=== PATIENT | male | born 1940 | race Caucasian/White ===

== ENCOUNTER 2017-07-02 06:29 | Inpatient (IN) | payer MEDICAID ==
[2017-07-02] MEDS: SODIUM CHLORIDE 0.9% 1L BAG IV* (07:08)
[2017-07-02] MEDS: ACETAMINOPHEN 325 MG TAB PO (07:08)
[2017-07-02] MEDS: IPRATROPIUM (NEB) 0.5 MG/2.5 ML AMP INH (07:12)
[2017-07-02] MEDS: ALBUTEROL 0.5% (NEB) 2.5 MG/0.5 ML AMP INH (07:12)
[2017-07-02 07:27] LABS: ADD MAN DIFF? NO
[2017-07-02 07:30] LABS: BASOPHIL # 0.1 10^3/ul (0.0-0.1); BASOPHILS % 0.5 % (0.0-2.0); EOSINOPHILS # 0.1 10^3/ul (0.0-0.5); EOSINOPHILS % 1.2 % (0.0-7.0); HEMATOCRIT 42.3 % (42.0-52.0); HEMOGLOBIN 13.7 g/dl (14.0-18.0); LYMPHOCYTES % 8.8 % (15.0-51.0); MEAN CORPUSCULAR HGB CONC 32.4 g/dl (32.0-37.0); MEAN CORPUSCULAR VOLUME 89.6 fl (82.0-101.0); MEAN PLATELET VOLUME 12.3 fl (7.4-10.4); MONOCYTE # 0.6 10^3/ul (0.3-0.9); MONOCYTES % 5.7 % (0.0-11.0); NEUTROPHIL # 9.2 10^3/ul (1.6-7.5); NEUTROPHILS % 83.2 % (39.0-77.0); PLATELET COUNT 174 10^3/UL (140-415); RED BLOOD COUNT 4.72 10^6/ul (4.70-6.10); RED CELL DISTRIBUTION WIDTH 14.5 % (11.5-14.5)
[2017-07-02 07:30] LABS: WHITE BLOOD COUNT 11.1 10^3/ul (4.8-10.8)
[2017-07-02 07:50] LABS: PROTIME 13.3 Sec (11.9-14.9)
[2017-07-02 07:51] LABS: ALANINE AMINOTRANSFERASE 42 IU/L (13-69); ALBUMIN 4.1 g/dl (3.3-4.9); ALBUMIN/GLOBULIN RATIO 0.95; ALKALINE PHOSPHATASE 123 IU/L (42-121); ANION GAP 21 (8-16); ASPARTATE AMINO TRANSFERASE 34 IU/L (15-46); BILIRUBIN,INDIRECT 0.1 mg/dl (0-1.1); BILIRUBIN,TOTAL 0.1 mg/dl (0.2-1.3); BLOOD UREA NITROGEN 16 mg/dl (7-20); CARBON DIOXIDE 26 mmol/L (21-31); CHLORIDE 105 mmol/L (97-110); CREATININE 0.93 mg/dl (0.61-1.24); GLUCOSE 130 mg/dl (70-220); POTASSIUM 4.6 mmol/L (3.5-5.1); SODIUM 147 mmol/L (135-144); TOTAL PROTEIN 8.4 g/dl (6.1-8.1)
[2017-07-02 07:53] LABS: LACTIC ACID 3.1 mmol/L (0.5-2.0)
[2017-07-02 08:02] LABS: TROPONIN-I < 0.012 ng/ml (0.00-0.12)
[2017-07-02] MEDS: CEFTRIAXONE 1 GM/50 ML (PMX) 50 ML IVPB (08:05)
[2017-07-02] MEDS: AZITHROMYCIN 500MG/NS (PMX) 250 ML IV (08:06)
[2017-07-02] MEDS: SOD CHLORIDE 0.9% 1,000 ML IV (08:07)
[2017-07-02] MEDS ORDERED: ONDANSETRON 4 MG INJ IV (08:30)
[2017-07-02] MEDS ORDERED: ACETAMINOPHEN 325 MG TAB PO ×2 (08:30→09:00)
[2017-07-02] MEDS ORDERED: ONDANSETRON 4 MG TAB PO (09:00)
[2017-07-02] MEDS ORDERED: NACL 0.9% 3 ML SYG IV (09:00)
[2017-07-02] MEDS ORDERED: AZITHROMYCIN 500MG/NS (PMX) 250 ML IV (09:00)
[2017-07-02] MEDS ORDERED: GLUCOSE GEL 15 GRAM TUBE BUCCAL (09:00)
[2017-07-02] MEDS ORDERED: DEXTROSE 50% 50 ML SYRINGE IV ×2 (09:00)
[2017-07-02] MEDS ORDERED: DOCUSATE SODIUM 100 MG CAP PO (09:00)
[2017-07-02] MEDS ORDERED: GLUCOSE GEL 15 GRAM TUBE PO ×2 (09:00)
[2017-07-02] MEDS ORDERED: GLUCAGON 1 MG INJ IM (09:00)
[2017-07-02] MEDS ORDERED: CEFTRIAXONE 1 GM/50 ML (PMX) 50 ML IVPB (09:00)
[2017-07-02 09:59] LABS: HEMOGLOBIN A1C 5.9 % (0-5.9)
[2017-07-02 10:00] LABS: LACTIC ACID 1.3 mmol/L (0.5-2.0)
[2017-07-02] MEDS: ACCU-CHEK XX ×3 (10:00→19:33)
[2017-07-02] MEDS: FAMOTIDINE 20 MG TAB PO ×2 (10:10→20:17)
[2017-07-02] MEDS: SALMETEROL/FLUTICASONE 250/50 INHA INH ×2 (10:10→20:17)
[2017-07-02] MEDS: TAMSULOSIN (SR) 0.4 MG CAP PO ×2 (10:10→20:17)
[2017-07-02] MEDS: AMLODIPINE 5 MG TAB PO (10:12)
[2017-07-02] MEDS: TERBINAFINE 250 MG TAB PO ×2 (10:12→20:17)
[2017-07-02] MEDS: HEPARIN 5,000 UNIT/0.5 ML VIAL SC ×2 (10:13→20:21)
[2017-07-02] MEDS: ALBUTEROL 0.083% (NEB) 2.5 MG/3 ML AMP NEB ×4 (10:23→21:33)
[2017-07-02 10:41] LABS: HEPATITIS B SURFACE ANTIGEN NEGATIVE (NEGATIVE)
[2017-07-02 10:57] LABS: HEPATITIS C VIRAL ANTIBODY NEGATIVE (NEGATIVE)
[2017-07-02] MEDS: INSULIN ASPART [NOVOLOG] 3 ML PEN SC ×3 (12:00→20:38)
[2017-07-02] MEDS: HYDROCODONE/APAP (5/325) TAB PO (21:42)
[2017-07-02 21:55] LABS: LACTIC ACID 1.2 mmol/L (0.5-2.0)
[2017-07-02] MEDS: ATORVASTATIN 10 MG TAB PO (23:09)
[2017-07-03] MEDS: ALBUTEROL 0.083% (NEB) 2.5 MG/3 ML AMP NEB ×6 (00:08→20:20)
[2017-07-03 06:16] LABS: ADD MAN DIFF? NO
[2017-07-03 06:27] LABS: WHITE BLOOD COUNT 13.2 10^3/ul (4.8-10.8)
[2017-07-03 06:27] LABS: BASOPHILS % 0.3 % (0.0-2.0); EOSINOPHILS # 0.1 10^3/ul (0.0-0.5); EOSINOPHILS % 0.7 % (0.0-7.0); HEMATOCRIT 34.9 % (42.0-52.0); HEMOGLOBIN 11.2 g/dl (14.0-18.0); LYMPHOCYTES # 1.2 10^3/ul (0.8-2.9); LYMPHOCYTES % 9.2 % (15.0-51.0); MEAN CORPUSCULAR HEMOGLOBIN 28.9 pg (29.0-33.0); MEAN CORPUSCULAR HGB CONC 32.1 g/dl (32.0-37.0); MEAN CORPUSCULAR VOLUME 90.2 fl (82.0-101.0); MEAN PLATELET VOLUME 12.9 fl (7.4-10.4); MONOCYTE # 1.3 10^3/ul (0.3-0.9); NEUTROPHIL # 10.4 10^3/ul (1.6-7.5); NEUTROPHILS % 79.3 % (39.0-77.0); PLATELET COUNT 176 10^3/UL (140-415); RED BLOOD COUNT 3.87 10^6/ul (4.70-6.10)
[2017-07-03 06:47] LABS: ALANINE AMINOTRANSFERASE 34 IU/L (13-69); ALBUMIN 3.4 g/dl (3.3-4.9); ALBUMIN/GLOBULIN RATIO 0.89; ALKALINE PHOSPHATASE 100 IU/L (42-121); ANION GAP 12 (8-16); ASPARTATE AMINO TRANSFERASE 23 IU/L (15-46); BILIRUBIN,INDIRECT 0.1 mg/dl (0-1.1); BILIRUBIN,TOTAL 0.1 mg/dl (0.2-1.3); BLOOD UREA NITROGEN 14 mg/dl (7-20); CALCIUM 8.8 mg/dl (8.4-10.2); CARBON DIOXIDE 26 mmol/L (21-31); CHLORIDE 106 mmol/L (97-110); CREATININE 0.81 mg/dl (0.61-1.24); GLUCOSE 103 mg/dl (70-220); POTASSIUM 3.9 mmol/L (3.5-5.1); SODIUM 140 mmol/L (135-144); TOTAL PROTEIN 7.2 g/dl (6.1-8.1)
[2017-07-03 06:58] LABS: LACTIC ACID 1.2 mmol/L (0.5-2.0)
[2017-07-03 07:00] LABS: IRON < 10 ug/dl (35-150)
[2017-07-03 08:12] LABS: TOTAL IRON BINDING CAPACITY 194 ug/dl (241-421)
[2017-07-03] MEDS: INSULIN ASPART [NOVOLOG] 3 ML PEN SC ×4 (08:15→21:00)
[2017-07-03] MEDS: SALMETEROL/FLUTICASONE 250/50 INHA INH ×2 (08:17→21:04)
[2017-07-03] MEDS: CEFTRIAXONE 1 GM/50 ML (PMX) 50 ML IVPB (08:17)
[2017-07-03] MEDS: FAMOTIDINE 20 MG TAB PO ×2 (08:18→20:57)
[2017-07-03] MEDS: TAMSULOSIN (SR) 0.4 MG CAP PO ×2 (08:18→20:57)
[2017-07-03] MEDS: AMLODIPINE 5 MG TAB PO (08:18)
[2017-07-03] MEDS: TERBINAFINE 250 MG TAB PO ×2 (08:18→20:57)
[2017-07-03] MEDS: HEPARIN 5,000 UNIT/0.5 ML VIAL SC ×2 (08:31→20:58)
[2017-07-03] MEDS: ACCU-CHEK XX ×2 (09:55→14:05)
[2017-07-03] MEDS: AZITHROMYCIN 500MG/NS (PMX) 250 ML IV (10:41)
[2017-07-03] MEDS: SOD FERRIC GLUC COMPLX 125 MG in SOD CHLORIDE 0.9% 100 ML IVPB (16:38)
[2017-07-03] MEDS: ATORVASTATIN 10 MG TAB PO (20:57)
[2017-07-04] MEDS: ALBUTEROL 0.083% (NEB) 2.5 MG/3 ML AMP NEB ×3 (00:48→08:40)
[2017-07-04 07:44] LABS: ADD UMIC YES; UR ASCORBIC ACID NEGATIVE (NEGATIVE); UR BILIRUBIN (Dip) NEGATIVE (NEGATIVE); UR BLOOD (Dip) NEGATIVE (NEGATIVE); UR CLARITY CLEAR (CLEAR); UR COLOR YELLOW (YELLOW); UR GLUCOSE (Dip) NEGATIVE (NEGATIVE); UR KETONES (Dip) TRACE mg/dL (NEGATIVE); UR LEUKOCYTE ESTERASE (Dip) TRACE Leu/ul (NEGATIVE); UR NITRITE (Dip) NEGATIVE (NEGATIVE); UR RBC 0 /HPF (0-5); UR TOTAL PROTEIN (Dip) NEGATIVE (NEGATIVE); UR UROBILINOGEN (Dip) NEGATIVE (NEGATIVE); UR WBC 10 /HPF (0-5)
[2017-07-04] MEDS: INSULIN ASPART [NOVOLOG] 3 ML PEN SC ×4 (08:08→22:35)
[2017-07-04] MEDS: FAMOTIDINE 20 MG TAB PO ×2 (08:43→22:26)
[2017-07-04] MEDS: TAMSULOSIN (SR) 0.4 MG CAP PO ×2 (08:43→22:26)
[2017-07-04] MEDS: AMLODIPINE 5 MG TAB PO (08:43)
[2017-07-04] MEDS: TERBINAFINE 250 MG TAB PO ×2 (08:43→22:26)
[2017-07-04] MEDS: CEFTRIAXONE 1 GM/50 ML (PMX) 50 ML IVPB (08:44)
[2017-07-04] MEDS: HEPARIN 5,000 UNIT/0.5 ML VIAL SC ×2 (08:46→22:30)
[2017-07-04] MEDS: AZITHROMYCIN 500MG/NS (PMX) 250 ML IV (09:56)
[2017-07-04] MEDS: SALMETEROL/FLUTICASONE 250/50 INHA INH ×2 (09:56→22:24)
[2017-07-04] MEDS ORDERED: ALBUTEROL 0.083% (NEB) 2.5 MG/3 ML AMP NEB (10:30)
[2017-07-04] MEDS ORDERED: CEPASTAT LOZENGE MT (10:30)
[2017-07-04 11:07] LABS: ADD MAN DIFF? NO
[2017-07-04 11:12] LABS: WHITE BLOOD COUNT 7.7 10^3/ul (4.8-10.8)
[2017-07-04 11:12] LABS: BASOPHILS % 0.3 % (0.0-2.0); EOSINOPHILS # 0.1 10^3/ul (0.0-0.5); EOSINOPHILS % 1.2 % (0.0-7.0); HEMATOCRIT 34.3 % (42.0-52.0); HEMOGLOBIN 10.9 g/dl (14.0-18.0); LYMPHOCYTES # 0.7 10^3/ul (0.8-2.9); LYMPHOCYTES % 9.4 % (15.0-51.0); MEAN CORPUSCULAR HEMOGLOBIN 28.5 pg (29.0-33.0); MEAN CORPUSCULAR HGB CONC 31.8 g/dl (32.0-37.0); MEAN CORPUSCULAR VOLUME 89.8 fl (82.0-101.0); MEAN PLATELET VOLUME 11.5 fl (7.4-10.4); MONOCYTE # 0.8 10^3/ul (0.3-0.9); MONOCYTES % 10.2 % (0.0-11.0); NEUTROPHILS % 77.7 % (39.0-77.0); PLATELET COUNT 191 10^3/UL (140-415); RED BLOOD COUNT 3.82 10^6/ul (4.70-6.10); RED CELL DISTRIBUTION WIDTH 14.7 % (11.5-14.5)
[2017-07-04 11:27] LABS: ANION GAP 12 (8-16); BLOOD UREA NITROGEN 14 mg/dl (7-20); CALCIUM 8.6 mg/dl (8.4-10.2); CARBON DIOXIDE 26 mmol/L (21-31); CHLORIDE 104 mmol/L (97-110); CREATININE 0.83 mg/dl (0.61-1.24); GLUCOSE 140 mg/dl (70-220); POTASSIUM 3.9 mmol/L (3.5-5.1); SODIUM 138 mmol/L (135-144)
[2017-07-04] MEDS: SOD FERRIC GLUC COMPLX 125 MG in SOD CHLORIDE 0.9% 100 ML IVPB (16:07)
[2017-07-04] MEDS: ATORVASTATIN 10 MG TAB PO (22:26)
[2017-07-04] MEDS: LATANOPROST 0.005% 2.5 ML OPH BOTH EYES (22:31)
[2017-07-05] MEDS: FAMOTIDINE 20 MG TAB PO (07:58)
[2017-07-05] MEDS: TAMSULOSIN (SR) 0.4 MG CAP PO (07:58)
[2017-07-05] MEDS: TERBINAFINE 250 MG TAB PO (07:58)
[2017-07-05] MEDS: AMLODIPINE 5 MG TAB PO (07:58)
[2017-07-05] MEDS: INSULIN ASPART [NOVOLOG] 3 ML PEN SC ×2 (08:00→12:15)
[2017-07-05] MEDS: CEFTRIAXONE 1 GM/50 ML (PMX) 50 ML IVPB (08:01)
[2017-07-05] MEDS: HEPARIN 5,000 UNIT/0.5 ML VIAL SC (08:03)
[2017-07-05] MEDS: AZITHROMYCIN 500MG/NS (PMX) 250 ML IV (09:54)
[2017-07-05] MEDS: SALMETEROL/FLUTICASONE 250/50 INHA INH (09:54)
[2017-07-05] MEDS: SOD FERRIC GLUC COMPLX 125 MG in SOD CHLORIDE 0.9% 100 ML IVPB (16:00)
== END 2017-07-05 17:00 | disposition home or self-care (01) | DRG 871 ==
LOC: MS2 07-05 01:23 → E/R 06:29 → MS2 13:47
DX: A41.9 Sepsis, unspecified organism (principal); J18.9 Pneumonia, unspecified organism; E88.81 Metabolic syndrome and other insulin resistance; B35.1 Tinea unguium; F17.210 Nicotine dependence, cigarettes, uncomplicated; I10 Essential (primary) hypertension; B35.3 Tinea pedis; J45.40 Moderate persistent asthma, uncomplicated; D50.9 Iron deficiency anemia, unspecified; E78.5 Hyperlipidemia, unspecified; H91.93 Unspecified hearing loss, bilateral
CPT/HCPCS: 36415; 71045; 80048; 80053; 81001; 82728; 82962; 83036; 83540; 83605; 84443; 84484; 85025; 85610; 85730; 86803; 87040; 87086; 87340; 87400; 93005; 94640; 94644; 94664; 96372; 96374; 96375; 97162; 99291-25